=== PATIENT | female | born 1965 | race Caucasian/White ===

== ENCOUNTER → 2021-07-05 | Day surgery (SDC) | payer OTHER ==
[~2021-07-05] VITALS: Ht 165.1 cm; Wt 95.3 kg
[~2021-07-05] MED LIST: AMLODIPINE BESY10 MG PO; CYCLOBENZAPRINE10 MG PO; ESTRACE1 M1 PO; HYDROCHLOROTH12.5 M3 PO; K-LOR 20MEQ20 ME1 PO; LOSARTAN POTASS50 M1 PO; LYRICA100 M1 PO; VITAMIN D250 MCG PO; WELLBUTRIN SR150 MG PO
[2021-07-05 07:27] VITALS: BP 139/92
[2021-07-05 08:05] VITALS: BP 154/87
[2021-07-05 08:20] VITALS: BP 160/90
[2021-07-05 08:35] VITALS: BP 133/69
== END | disposition home or self-care (01) ==
LOC: SDC 04-22 11:00
PROVIDERS: ATTEND Surgery
DX: Z12.11 Encounter for screening for malignant neoplasm of colon (principal); I10 Essential (primary) hypertension; E11.9 Type 2 diabetes mellitus without complications; F32.9 Major depressive disorder, single episode, unspecified; F41.9 Anxiety disorder, unspecified; Z98.84 Bariatric surgery status; Z20.822 Contact with and (suspected) exposure to COVID-19

== ENCOUNTER 2021-12-09 02:15 | Emergency (ER) | payer OTHER ==
[~2021-12-09] VITALS: Ht 165.1 cm; Wt 91.2 kg
[2021-12-09 02:45] LABS: BASO % 0.3 % (0.0-1.0); EOS # 0.1 10*3/uL (0.0-0.4); EOS % 0.9 % (1.0-4.0); HEMATOCRIT 33.2 % (37.0-47.0); LYMPH # 1.5 10*3/uL (1.3-4.4); MEAN CELL VOLUME 77.9 fl (81.0-99.0); MEAN CORPUSCULAR HGB 24.4 pg (27.0-31.0); MEAN CORPUSCULAR HGB CONC 31.3 g/dl (33.0-37.0); MONO # 0.6 10*3/uL (0.1-1.0); MONO % 7.7 % (3.0-9.0); NEUT # 5.5 10*3/uL (2.3-7.9); NEUT % 71.8 % (47.0-73.0); PLATELET COUNT AUTOMATED 282 10*3/uL (130-400); RED BLOOD COUNT 4.26 10*6/uL (4.10-5.10); RED CELL DISTRI WIDTH 18.2 % (0-14.5); WHITE BLOOD COUNT 7.7 10*3/uL (4.8-10.8)
[2021-12-09 03:01] LABS: ALKALINE PHOSPHATASE 139 U/L (45-117); BUN 12 mg/dl (7-24); CHLORIDE 106 mmol/L (98-107); CREATININE 0.73 mg/dL (0.55-1.02); LIPASE 164 U/L (73-393); SGOT/AST 152 IU/L (3-35); SGPT/ALT 52 U/L (12-78); SODIUM 138 mmol/L (136-145); TOTAL PROTEIN 7.3 gm/dL (6.4-8.2)
[2021-12-09 03:24] LABS: BILIRUBIN Negative (Negative); BLOOD Negative (Negative); CLARITY Clear (Clear); COLOR Yellow (Yellow); GLUCOSE Negative (Negative); KETONE Negative (Negative); LEUKO ESTERASE 1+ (Negative); NITRITE Negative (Negative); SPECIFIC GRAVITY 1.015 (1.001-1.030)
[2021-12-09 04:06] LABS: BACTERIA 2+; WBC 31-40 wbc/hpf (0-5)
[2021-12-09] MEDS ORDERED: PREDNISONE20 M1 PO (05:21)
[2021-12-09] MEDS ORDERED: CYCLOBENZAPRINE10 MG PO (05:21)
[2021-12-09] MEDS ORDERED: CIPRO500 MG PO (05:21)
== END 2021-12-09 05:36 | disposition home or self-care (01) ==
LOC: ED 02:15
PROVIDERS: Emergency Medicine
DX: N39.0 Urinary tract infection, site not specified (principal); G58.8 Other specified mononeuropathies; M54.6 Pain in thoracic spine; M54.2 Cervicalgia; Z98.84 Bariatric surgery status; Z79.899 Other long term (current) drug therapy; Z90.710 Acquired absence of both cervix and uterus; Z90.49 Acquired absence of other specified parts of digestive tract; Z98.890 Other specified postprocedural states

== ENCOUNTER → 2022-03-02 | Outpatient (CLI) | payer OTHER ==
[~2022-03-02] MED LIST changes: +CIPRO500 MG PO; +PREDNISONE20 M1 PO
[2022-03-02 12:13] LABS: HEMATOCRIT 34.9 % (37.0-47.0); MEAN CORPUSCULAR HGB 24.5 pg (27.0-31.0); MEAN CORPUSCULAR HGB CONC 31.8 g/dl (33.0-37.0); MEAN PLATELET VOLUME 8.8 fl (9.6-12.3); PLATELET COUNT AUTOMATED 495 10*3/uL (130-400); RED BLOOD COUNT 4.53 10*6/uL (4.10-5.10); RED CELL DISTRI WIDTH 15.6 % (0-14.5); WHITE BLOOD COUNT 8.5 10*3/uL (4.8-10.8)
[2022-03-02 12:14] LABS: MANUAL DIFF REFLEX YES
[2022-03-02 12:28] LABS: BUN 22 mg/dl (7-24); CHLORIDE 111 mmol/L (98-107); CREATININE 0.89 mg/dL (0.55-1.02); POTASSIUM 3.2 mmol/L (3.5-5.1); SODIUM 140 mmol/L (136-145)
[2022-03-02 12:58] LABS: ATYPICAL LYMPHS 2 % (0-0); BASOPHILS 1 % (0-1); TOTAL CELLS COUNTED 100 #CELLS
[2022-03-02 12:59] LABS: BURR CELLS FEW; OVALOCYTES FEW; PLATELET SUFFICIENCY HIGH (NORMAL); POLYCHROMASIA SLIGHT; SCHISTOCYTES FEW; TARGET CELLS FEW
[2022-03-02 13:00] LABS: MICROCYTOSIS SLIGHT
== END | disposition home or self-care (01) ==
LOC: LAB 11:04
PROVIDERS: ATTEND Family Medicine
DX: R19.7 Diarrhea, unspecified (principal)

== ENCOUNTER → 2022-03-11 | Outpatient (CLI) | payer OTHER ==
[2022-03-11 10:11] LABS: ALKALINE PHOSPHATASE 111 U/L (46-116); CHLORIDE 101 mmol/L (98-107); SGPT/ALT 18 U/L (10-49); SODIUM 135 mmol/L (136-145)
[2022-03-11 10:12] LABS: BUN 8 mg/dl (9-23); CREATININE 0.72 mg/dL (0.55-1.02)
[2022-03-11 10:14] LABS: TOTAL PROTEIN 6.7 gm/dL (6.0-8.0)
[2022-03-11 11:47] LABS: VITAMIN D, 25-HYDROXY 28.1 ng/mL (30-100)
== END | disposition home or self-care (01) ==
LOC: LAB 09:07
PROVIDERS: ATTEND Family Medicine
DX: D50.9 Iron deficiency anemia, unspecified (principal); E87.6 Hypokalemia; R19.7 Diarrhea, unspecified; Z90.3 Acquired absence of stomach [part of]; Z98.0 Intestinal bypass and anastomosis status

== ENCOUNTER → 2025-03-26 | Outpatient (CLI) | payer OTHER | END | disposition home or self-care (01) | LOC: US 00:26 | PROVIDERS: ATTEND Family Medicine | DX: K76.0 Fatty (change of) liver, not elsewhere classified (principal); R10.11 Right upper quadrant pain ==